=== PATIENT | female | born 1975 | race Caucasian/White ===

== ENCOUNTER 2017-08-15 15:57 | Emergency (ER) | payer OTHER, SELFPAY ==
[2017-08-15] MEDS ORDERED: Dexamethasone 4 mg/ml Vial ONE (16:38)
== END 2017-08-15 17:43 | disposition home or self-care (01) ==
LOC: ERS 15:57
DX: L50.9 Urticaria, unspecified (principal); F41.9 Anxiety disorder, unspecified
CPT/HCPCS: 96372; J1100

== ENCOUNTER 2019-10-08 10:56 | Outpatient (CLI) | payer BC ==
--- NOTE | 2019-10-08 11:24 | MMO ---
Bilateral MAMMO Bilat Screen [facility]. CLINICAL HISTORY: Patient is 43 years old and is seen for screening. The patient has the following family history of breast cancer: mother, at age 27 and maternal grandmother. The patient has no personal history of cancer. VIEWS: The views performed were: bilateral craniocaudal with tomosynthesis and bilateral mediolateral oblique with tomosynthesis. FILMS COMPARED: The present examination has been compared to a prior imaging study performed at [facility] on 06/17/2015. This study has been interpreted with the assistance of computer-aided detection. MAMMOGRAM FINDINGS: There are scattered fibroglandular densities. There are stable benign appearing calcifications seen in both breasts. There are no suspicious masses, suspicious calcifications, or new areas of architectural distortion. IMPRESSION: THERE IS NO MAMMOGRAPHIC EVIDENCE OF MALIGNANCY. A ROUTINE FOLLOW-UP MAMMOGRAM IN 1 YEAR IS RECOMMENDED. THE RESULTS OF THIS EXAM WERE SENT TO THE PATIENT. ACR BI-RADS Category 2 - Benign finding MAMMOGRAPHY NOTE: 1. A negative mammogram report should not delay a biopsy if a dominant of clinically suspicious mass is present. 2. Approximately 10% to 15% of breast cancers are not detected by mammography. 3. Adenosis and dense breasts may obscure an underlying neoplasm. Reported by: PRATIK TELLEZ MD Electonically Signed: [id number]
== END 2019-10-08 10:57 | disposition home or self-care (01) ==
LOC: BICMAMMO 10:56
PROVIDERS: ATTEND Family Medicine
DX: Z12.31 Encounter for screening mammogram for malignant neoplasm of breast (principal); Z80.3 Family history of malignant neoplasm of breast
CPT/HCPCS: 77063; 77067